=== PATIENT | female | born 1990 | race Caucasian/White ===

== ENCOUNTER 2016-06-19 02:08 | Emergency (ER) | payer OTHER ==
[~2016-06-19] VITALS: Ht 167.6 cm; Wt 134.1 kg
[2016-06-19 02:10] VITALS: TEMP 98
[2016-06-19] MEDS ORDERED: EFFEXOR-XR150 MG PO (02:13)
[2016-06-19] MEDS ORDERED: ADDERALL15 MG PO (02:14)
[2016-06-19 02:55] LABS: BASO # 0.1 (0.0-0.2); BASO % 0.5 % (0.0-2.0); EOS # 0.1 (0.0-0.7); EOS % 1.2 % (0-4.0); GRAN # 5.4 (1.4-6.5); GRAN % 53.8 % (42.2-75.2); HEMATOCRIT 39.1 % (37.0-47.0); HEMOGLOBIN 13.4 g/dl (12.5-16.0); LYMPH # 3.7 (1.2-3.4); LYMPH % 36.5 % (20.0-51.0); MEAN CELL VOLUME 88 fl (80.0-100.0); MEAN CORPUSCULAR HEMOGLOBIN 30 pg (27.0-31.0); MEAN CORPUSCULAR HGB CONC 34 g/dl (33.0-37.0); MEAN PLATELET VOLUME 11.1 fl (7.4-10.4); MONO # 0.8 (0.1-0.6); MONO % 7.8 % (1.7-9.3); PLATELET COUNT 280 K/mm3 (130-400); RED BLOOD COUNT 4.47 M/mm3 (4.10-5.30); WHITE BLOOD COUNT 10.1 K/mm3 (4.8-10.8)
[2016-06-19 03:07] LABS: ADJUSTED CALCIUM 9.6 mg/dL (8.4-10.2); ALBUMIN 4.3 gm/dL (3.5-5.0); BILIRUBIN,TOTAL 0.6 mg/dL (0.0-1.0); C-REACTIVE PROTEIN 0.9 mg/dL (0.0-0.9); CALCIUM 9.8 mg/dL (8.4-10.2); CREATININE, serum 0.84 mg/dL (0.52-1.25); POTASSIUM 3.6 mmol/L (3.4-5.0); TOTAL PROTEIN 7.9 gm/dL (6.4-8.2)
[2016-06-19 04:20] LABS: PH 5 (5-8); URINE APPEARANCE Cloudy; URINE BACTERIA None Seen /hpf; URINE BILIRUBIN Negative (NEGATIVE); URINE BLOOD 3+ (NEGATIVE); URINE COLOR Yellow; URINE GLUCOSE Negative (NEGATIVE); URINE KETONE Negative (NEGATIVE); URINE RBC >50 /hpf; URINE UROBILINOGEN Negative (NEGATIVE)
[2016-06-19] MEDS ORDERED: ZOFRAN8 MG PO (05:13)
[2016-06-19] MEDS ORDERED: ULTRAM 50MG TAB50 MG PO (05:13)
[2016-06-19] MEDS ORDERED: FLOMAX 0.40.4 MG/CAP PO (05:13)
[2016-06-19] MEDS ORDERED: PERCOCET 325 MG1 TA2 PO (05:13)
[2016-06-19] MEDS ORDERED: BACTRIM DS 8001 TAB PO (05:13)
[2016-06-19 05:42] VITALS: BP 128/80; PULSE 68
== END 2016-06-19 05:44 | disposition home or self-care (01) ==
LOC: COL.ER 02:08
PROVIDERS: Physician Assistant
DX: N13.2 Hydronephrosis with renal and ureteral calculous obstruction (principal)
CPT/HCPCS: J1170; J1885; J2405; J7030; Q9967